=== PATIENT | female | born 1985 | race Caucasian/White ===

== ENCOUNTER → 2016-10-10 | Outpatient (REF) | payer OTHER ==
[~2016-10-10] MED LIST: ACET50TA PO; ANUS2.5C2 TOP; COLA50CA3 PO; IBUP600T26 PO; MOM30SS PO; PRENCAP9 PO; TUMS500C PO
== END | disposition home or self-care (01) ==
LOC: M LAB REF 16:24
PROVIDERS: ATTEND Advanced Practice Midwife
DX: Z34.82 Encounter for supervision of other normal pregnancy, second trimester (principal); Z36 Encounter for antenatal screening of mother; Z3A.00 Weeks of gestation of pregnancy not specified

== ENCOUNTER → 2016-10-17 | Outpatient (REF) | payer OTHER ==
[2016-10-17 18:08] LABS: BASO % 0.2 % (0.0-1.0); EOS # 0.1 K/mm3 (0.0-0.50); EOS % 1.2 % (0.0-3.0); LARGE UNSTAINED CELL # 0.1 K/mm3 (0.0-0.4); LARGE UNSTAINED CELL % 1.7 % (0.0-4.0); LYMPH # 1.8 K/mm3 (1.5-4.5); LYMPH % 20.5 % (24.0-44.0); MEAN CORPUSCULAR HEMOGLOBIN 29.8 pg (27.0-33.0); MEAN CORPUSCULAR HGB CONC 33.8 g/dl (32.0-36.5); MONO # 0.4 K/mm3 (0.0-0.8); MONO % 4.9 % (0.0-5.0); NEUTROPHILS # 6.1 K/mm3 (1.8-7.7); NEUTROPHILS % 71.6 % (36.0-66.0); PLATELET COUNT, AUTOMATED 194 k/mm3 (150-450); RED CELL DISTRIBUTION WIDTH 13.4 % (11.5-14.5); WHITE BLOOD COUNT 8.5 K/mm3 (4.0-10.0)
[2016-10-17 18:30] LABS: FERRITIN 7 NG/ML (8-252)
== END | disposition home or self-care (01) ==
LOC: M LAB REF 17:21
PROVIDERS: ATTEND Advanced Practice Midwife
DX: F50.89 Other specified eating disorder (principal)

== ENCOUNTER 2016-11-14 15:36 | Inpatient (IN) | payer MEDICAID, OTHER ==
[~2016-11-14] VITALS: Ht 157.5 cm; Wt 75.0 kg
[2016-11-14] VITALS (10 sets, daily range): BP systolic 112–139; BP diastolic 63–97
[2016-11-14] MEDS ORDERED: ACET25TA5 PO (16:01)
[2016-11-14] MEDS ORDERED: OXYTOCIN 30 UNITS IN 0.9% NaCl 500ML IV BAG (J2590) As Ordered ONE (16:43)
[2016-11-14] MEDS ORDERED: LACTATED RINGER'S 1000 ML IV STA (17:13)
[2016-11-14] MEDS ORDERED: OXYTOCIN DRIP 30 UNITS in APPROPRIATE DILUENT 1 EA IV SCH (17:15)
[2016-11-14 17:49] LABS: MEAN CORPUSCULAR HEMOGLOBIN 29.7 pg (27.0-33.0); MEAN CORPUSCULAR HGB CONC 33.1 g/dl (32.0-36.5); MEAN CORPUSCULAR VOLUME 89.7 fl (80.0-96.0); RED CELL DISTRIBUTION WIDTH 14.2 % (11.5-14.5); WHITE BLOOD COUNT 9.8 K/mm3 (4.0-10.0)
[2016-11-15] VITALS (45 sets, daily range): BP systolic 94–134; BP diastolic 52–89
[2016-11-15] MEDS: LR 1,000 ML IV SCH ×4 (00:32→14:23)
[2016-11-15] MEDS ORDERED: ACETAMINOPHEN 500 MG TAB PO STA (03:30)
[2016-11-15] MEDS ORDERED: PROMETHAZINE INJ 25 MG/ML VIAL (J2550) IV ONE (06:15)
[2016-11-15] MEDS ORDERED: BUTORPHANOL 2 MG/ML INJ (J0595) IV ONE (06:15)
[2016-11-15] MEDS ORDERED: BUTORPHANOL 2 MG/ML INJ (J0595) As Ordered ONE (06:19)
[2016-11-15] MEDS ORDERED: PROMETHAZINE INJ 25 MG/ML VIAL (J2550) As Ordered ONE (06:19)
--- NOTE | 2016-11-15 07:20 | HPE ---
DATE OF ADMISSION: 11/14/2016 Radha is a 31-year-old female, 5, para 2-0-2-2, with an expected date of confinement (EDC) of 11/15/2016, estimated gestational age (EGA) 39-6/7 weeks gestation who is being admitted for an induction. The patient does have a history of a prior section followed by successful vaginal after section (). After discussion extensively in the office, she did request an induction. The induction process was discussed with the patient as well as the limitation and complication with possible delivery and she still wants to proceed with the induction. record reviewed which was essentially unremarkable. LABS: Blood type is A+, rubella immune, hepatitis negative, HIV negative, GC and chlamydia negative. 1-hour sugar testing was within normal limits. Her GBS is negative. The patient has had a prior section in 2002 and had a successful vaginal delivery in 2012. PAST MEDICAL HISTORY: Significant for anxiety. PAST SURGICAL HISTORY: Dilation and curettage (D and C) times one, section. SOCIAL HISTORY: She denies any alcohol or drug use. She is a smoker. REVIEW OF SYSTEMS: Unremarkable. FAMILY HISTORY: Significant for arthritis, asthma and high blood pressure. MEDICATIONS: vitamins ALLERGIES: No known drug allergies. PHYSICAL EXAMINATION: Normal-appearing female in no acute distress. Abdomen soft, nontender, nondistended. Extremities: No clubbing, cyanosis or edema. Vaginal Exam: 2 cm dilated, 60-70% effaced, fetus at -3 station, vertex position. Tracing reviewed. Category one tracing. ASSESSMENT: 1. Intrauterine at 39-6/7 weeks gestation being admitted for an induction. 2. History of prior section with a successful . PLAN: Admit to labor and delivery. Routine labs sent. Induction process again discussed with the patient. Given her cervical dilatation, we did discuss Pitocin induction and Zaragoza bulb induction. The patient decided to proceed with Pitocin induction. Will continue to monitor. Pain management discussed. Anticipate delivery. MTDD
[2016-11-15] MEDS ORDERED: FENTANYL 2MCG/ML ROPIVACAINE 0.2% NACL 250 ML CADD As Ordered ONE (13:26)
[2016-11-15] MEDS ORDERED: LACTATED RINGER'S 1000 ML IV PRN (15:00)
[2016-11-15] MEDS ORDERED: ONDANSETRON 4MG/2ML VIAL (J2405) IV PRN ×2 (15:00→17:00)
[2016-11-15] MEDS ORDERED: ePHEDrine SULFATE 25 MG/5 ML(5MG/ML) SYRINGE IV PRN (15:00)
[2016-11-15] MEDS ORDERED: EPIDURAL COMMENT XX SCH (15:00)
[2016-11-15] MEDS ORDERED: FENTANYL/ROPIVACAINE/NACL CADD 250 ML EPIDURAL SCH (15:00)
[2016-11-15] MEDS ORDERED: EPIDURAL/PCA KEYS XX PRN (15:00)
[2016-11-15] MEDS ORDERED: diphenhydrAMINE INJ 50MG/ML VIAL (J1200) IV PRN (15:00)
[2016-11-15] MEDS ORDERED: REFRIGERATOR IV KEYS XX PRN (15:00)
[2016-11-15] MEDS ORDERED: NALOXONE INJ 0.4 MG/1 ML VIAL (J2310) IV PRN (15:00)
[2016-11-15] MEDS ORDERED: OXYTOCIN DRIP 30 UNITS in APPROPRIATE DILUENT 1 EA IV SCH (16:48)
[2016-11-15 16:54] LABS: CORD GAS ABE A -1.5; CORD GAS ABE V -3.2; CORD GAS HCO3 A 27.3 MEQ/L; CORD GAS HCO3 V 25.6 MEQ/L; CORD GAS O2 SAT A 25.1 %; CORD GAS O2 SAT V 47.6 %; CORD GAS PCO2 A 63.7 mmHg; CORD GAS PH A 7.25 UNITS; CORD GAS PH V 7.24 UNITS; CORD GAS PO2 A 16.1 mmHg; CORD GAS PO2 V 23.3 mmHg; CORD GAS SBC A 21.4 MEQ/L; CORD GAS SBC V 20.5 MEQ/L; CORD GAS TCO2 A 29.3 MEQ/L; CORD GAS TCO2 V 27.4 MEQ/L
[2016-11-15] MEDS ORDERED: DOCUSATE SODIUM 100 MG CAP PO PRN (17:00)
[2016-11-15] MEDS ORDERED: RHOGAM 300 MCG (1500 IU) INJ (J2790) IM SCH (17:00)
[2016-11-15] MEDS ORDERED: DIBUCAINE 1% OINTMENT 30GM TOP PRN (17:00)
[2016-11-15] MEDS ORDERED: MEASLES,MUMPS,RUBELLA VACCINE INJ (MMR-II) (90707) SC SCH (17:00)
[2016-11-15] MEDS ORDERED: ANUSOL HC CREAM 30GM TOP PRN (17:00)
[2016-11-15] MEDS ORDERED: METHYLERGONOVINE MALEATE 0.2 MG TAB PO PRN (17:00)
[2016-11-16 05:49] VITALS: BP 100/65
[2016-11-16] MEDS: ACETAMINOPHEN 500 MG TAB PO PRN ×2 (06:37→22:11)
[2016-11-16 06:49] LABS: MEAN CORPUSCULAR HEMOGLOBIN 30.2 pg (27.0-33.0); MEAN CORPUSCULAR HGB CONC 33.5 g/dl (32.0-36.5); MEAN CORPUSCULAR VOLUME 90.1 fl (80.0-96.0); RED CELL DISTRIBUTION WIDTH 14.3 % (11.5-14.5); WHITE BLOOD COUNT 12.3 K/mm3 (4.0-10.0)
--- NOTE | 2016-11-16 10:23 | DN ---
DATE: 11/15/2016 Radha is a female, 5, para 2-0-2-2, with an expected date of confinement (EDC) of 11/15/2016, estimated gestational age (EGA) 40 weeks gestation, who is admitted for an induction. She does have a history of prior section with a successful vaginal after section (). She underwent Pitocin followed by artificial rupture of membranes. She then progressed to fully dilated and had a 7-8 minute bradycardia with good recovery. The patient then pushed and delivered a live female in left occiput anterior position over an intact perineum. 9 and 9. weight 7 pounds 10 ounces. The placenta delivered spontaneously intact. There was a questionable cord abruption at the insertion to the placenta. The perineum, vagina and cervix inspected. No laceration noted. Estimated blood loss 300 mL. Both mother and baby in stable condition.
[2016-11-16] MEDS: PRENATAL VITAMIN TAB PO SCH (10:43)
[2016-11-16] MEDS: IBUPROFEN 800 MG TAB PO PRN (13:30)
[2016-11-16 18:06] VITALS: BP 123/78
[2016-11-17 05:57] VITALS: BP 118/71
[2016-11-17] MEDS: PRENATAL VITAMIN TAB PO SCH (08:37)
[2016-11-17] MEDS: IBUPROFEN 800 MG TAB PO PRN (08:37)
[2016-11-17] MEDS ORDERED: ACET50TA PO (09:05)
[2016-11-17] MEDS ORDERED: IBUP-1114 PO (09:05)
== END 2016-11-17 10:20 | disposition home or self-care (01) | DRG 560 ==
LOC: M LDI 15:36 → M OBS 11-15 18:22
PROVIDERS: ADMIT Obstetrics & Gynecology; ATTEND Obstetrics & Gynecology
PROC: 3E033VJ Introduction of Other Hormone into Peripheral Vein, Percutaneous Approach (ICD-10-PCS; 2016-11-14)
PROC: 10E0XZZ Delivery of Products of Conception, External Approach (ICD-10-PCS; principal; 2016-11-15)
PROC: 10907ZC Drainage of Amniotic Fluid, Therapeutic from Products of Conception, Via Natural or Artificial Opening (ICD-10-PCS; 2016-11-15)
DX: O34.211 Maternal care for low transverse scar from previous cesarean delivery (principal); Z3A.39 39 weeks gestation of pregnancy; O99.334 Smoking (tobacco) complicating childbirth; F17.210 Nicotine dependence, cigarettes, uncomplicated; Z37.0 Single live birth

== ENCOUNTER → 2017-02-02 | Day surgery (SDC) | payer OTHER ==
[~2017-02-02] VITALS: Ht 157.5 cm; Wt 68.0 kg
[~2017-02-02] MED LIST changes: +ACET25TA5 PO; +ACETAMINOPHEN 650 MG SUPP As Ordered ONE; +ACETAMINOPHEN 650 MG SUPP PR ONE; +BENA25CA4 PO; +BUPIVACAINE/EPIN 0.25% 30 ML VIAL As Ordered ONE; +GLYCOPYRROLATE INJ 0.2 MG/ML 2 ML VIAL As Ordered ONE; +HYDROmorphone HCL 2 MG/ML 1ML VIAL (J1170) As Ordered ONE; +IBUP-1114 PO; +IBUP80TA PO; +IBUPROFEN 800 MG TAB PO SCH; +KETOROLAC 60 MG/2 ML VIAL (J1885) As Ordered ONE; +LIDOCAINE 2% INJ 100 MG/5 ML SDV (FOR ANES.) As Ordered ONE; +LR 1,000 ML IV SCH; +MIDAZOLAM INJ 2 MG/2 ML VIAL (J2250) As Ordered ONE; +NEOSTIGMINE 1MG/ML 5 ML SYRINGE (J2710) As Ordered ONE; +ONDANSETRON 4MG/2ML VIAL (J2405) As Ordered ONE; +ONDANSETRON 4MG/2ML VIAL (J2405) IV PRN; +PERCOCET 5MG/325MG TAB As Ordered ONE; +PERCOCET 5MG/325MG TAB PO PRN; +PROPOFOL 200 MG/20 ML VIAL As Ordered ONE; +ROCURONIUM BROMIDE 50 MG/5 ML VIAL As Ordered ONE; +dexameTHASONE 4 MG/ML 1ML VIAL (J1100) As Ordered ONE; +fentaNYL 100 MCG/2 ML INJECTION (J3010) As Ordered ONE
[2017-02-02 09:40] LABS: MEAN CORPUSCULAR HEMOGLOBIN 30.6 pg (27.0-33.0); MEAN CORPUSCULAR HGB CONC 33.4 g/dl (32.0-36.5); MEAN CORPUSCULAR VOLUME 91.6 fl (80.0-96.0); RED CELL DISTRIBUTION WIDTH 13.3 % (11.5-14.5); WHITE BLOOD COUNT 6.5 K/mm3 (4.0-10.0)
[2017-02-02 09:55] LABS: CONTROL LINE HCG INT CTR LINE PRESENT
[2017-02-02] MEDS: PERCOCET 5MG/325MG TAB PO PRN ×2 (11:07→11:37)
[2017-02-02] MEDS: fentaNYL 100 MCG/2 ML INJECTION (J3010) IV PRN ×4 (11:07→11:22)
--- NOTE | 2017-02-02 11:14 | RO ---
DATE OF PROCEDURE: 02/02/2017 PREOPERATIVE DIAGNOSIS: Multiparity, desires permanent tubal sterilization. POSTOPERATIVE DIAGNOSIS: Multiparity, desires permanent tubal sterilization. PROCEDURE: Laparoscopic bilateral tubal ligation using a Filshie clip SURGEON: Dr. Jens Anderson PATENT LAW SPECIALIST: ANESTHESIA: General. COMPLICATIONS: None. ESTIMATED BLOOD LOSS: Less than 10 mL. FINDINGS: Normal-appearing tubes, lower uterine segment was found to be adherent to the bladder Eliz is a 31-year-old female who desires A permanent tubal sterilization. After counseling in the office, a decision was made for laparoscopic bilateral tubal ligation. PROCEDURE: After obtaining informed consent, the patient was taken to the operating room where general anesthetic was found to be adequate. She was then draped and prepped in the usual sterile fashion in a dorsal lithotomy position. At this point, a sponge stick was placed in the vagina for uterine manipulation. We then turned our attention to the abdomen where a 5 mm infraumbilical incision was made. Using the Veress needle, the abdomen was insufflated with CO2 gas to approximately 3.5 liters. A 5 mm [place] trocar as well as the laparoscope were inserted under direct visualization. Then, an 8 mm right lateral port was placed. The patient was placed in Trendelenburg. Fallopian tubes identified. Pelvis inspected with the above-noted findings. At this point, a Filshie clip was then applied 2-3 cm away from the cornual area on each tube. The pelvis copiously irrigated with normal saline and suctioned out. Good hemostasis noted. All instruments removed. The laparoscopic ports were closed using Dermabond on the skin, 0.25% Marcaine was placed for postoperative pain. The patient tolerated the procedure well. She was then transferred to the recovery room in stable condition.
[2017-02-02 12:15] VITALS: BP 116/75
== END ==
LOC: M SDC 08:55
PROVIDERS: ATTEND Obstetrics & Gynecology
DX: Z30.2 Encounter for sterilization (principal); F41.9 Anxiety disorder, unspecified; F17.210 Nicotine dependence, cigarettes, uncomplicated
CPT/HCPCS: 36415; 58671; 84703; 85027; 86850; 86900; 86901; A4649; J1100; J1170; J1885; J2250; J2405; J2710; J3010

== ENCOUNTER → 2017-09-19 | Outpatient (REF) | payer OTHER ==
[~2017-09-19] MED LIST changes: +ACET25TA12 PO; -ACET25TA5 PO; -ACETAMINOPHEN 650 MG SUPP As Ordered ONE; -ACETAMINOPHEN 650 MG SUPP PR ONE; -BUPIVACAINE/EPIN 0.25% 30 ML VIAL As Ordered ONE; -GLYCOPYRROLATE INJ 0.2 MG/ML 2 ML VIAL As Ordered ONE; -HYDROmorphone HCL 2 MG/ML 1ML VIAL (J1170) As Ordered ONE; -IBUPROFEN 800 MG TAB PO SCH; -KETOROLAC 60 MG/2 ML VIAL (J1885) As Ordered ONE; -LIDOCAINE 2% INJ 100 MG/5 ML SDV (FOR ANES.) As Ordered ONE; -LR 1,000 ML IV SCH; -MIDAZOLAM INJ 2 MG/2 ML VIAL (J2250) As Ordered ONE; -NEOSTIGMINE 1MG/ML 5 ML SYRINGE (J2710) As Ordered ONE; -ONDANSETRON 4MG/2ML VIAL (J2405) As Ordered ONE; -ONDANSETRON 4MG/2ML VIAL (J2405) IV PRN; -PERCOCET 5MG/325MG TAB As Ordered ONE; -PERCOCET 5MG/325MG TAB PO PRN; -PROPOFOL 200 MG/20 ML VIAL As Ordered ONE; -ROCURONIUM BROMIDE 50 MG/5 ML VIAL As Ordered ONE; -dexameTHASONE 4 MG/ML 1ML VIAL (J1100) As Ordered ONE; -fentaNYL 100 MCG/2 ML INJECTION (J3010) As Ordered ONE
[2017-09-19 15:10] LABS: BASO # 0.1 10^3/uL (0.0-0.2); BASO % 0.8 % (0.0-1.0); EOS # 0.1 10^3/uL (0.0-0.50); EOS % 1.2 % (0.0-3.0); IMMATURE GRANULOCYTE % 0.2 % (0-0); LYMPH # 2.2 10^3/uL (1.5-4.5); LYMPH % 36.2 % (24.0-44.0); MEAN CORPUSCULAR HEMOGLOBIN 29.4 pg (27.0-33.0); MEAN CORPUSCULAR HGB CONC 33.3 g/dl (32.0-36.5); MEAN CORPUSCULAR VOLUME 88.2 fl (80.0-96.0); MONO # 0.5 10^3/uL (0.0-0.8); MONO % 8.1 % (0.0-5.0); NEUTROPHILS # 3.2 10^3/uL (1.8-7.7); NEUTROPHILS % 53.5 % (36.0-66.0); PLATELET COUNT, AUTOMATED 249 10^3/uL (150-450); WHITE BLOOD COUNT 5.9 10^3/uL (4.0-10.0)
[2017-09-19 15:37] LABS: ALBUMIN 3.8 GM/DL (3.2-5.2); ALBUMIN/GLOBULIN RATIO 1.15 (1.00-1.93); ALKALINE PHOSPHATASE 90 U/L (45-117); ALT/SGPT 20 U/L (12-78); ANION GAP 7 MEQ/L (8-16); AST/SGOT 11 U/L (7-37); BILIRUBIN,TOTAL 0.5 MG/DL (0.2-1.0); BLOOD UREA NITROGEN 9 MG/DL (7-18); CALCIUM LEVEL 8.9 MG/DL (8.5-10.1); CARBON DIOXIDE LEVEL 27 MEQ/L (21-32); CHLORIDE LEVEL 107 MEQ/L (98-107); CHOLESTEROL LEVEL 185 MG/DL (<200); GLOMERULAR FILTRATION RATE > 60.0 (>60); GLUCOSE, FASTING 78 MG/DL (70-105); POTASSIUM SERUM 4.2 MEQ/L (3.5-5.1); SODIUM LEVEL 141 MEQ/L (136-145); TOTAL PROTEIN 7.1 GM/DL (6.4-8.2); TRIGLYCERIDES LEVEL 157 MG/DL (<150)
== END ==
LOC: M LAB REF 13:45
PROVIDERS: ATTEND Family Medicine Addiction Medicine
DX: Z00.01 Encounter for general adult medical examination with abnormal findings (principal); F33.1 Major depressive disorder, recurrent, moderate; F41.1 Generalized anxiety disorder

== ENCOUNTER → 2020-02-26 | Outpatient (CLI) | payer OTHER ==
[~2020-02-26] MED LIST changes: -ACET50TA PO; +MAPA500T17 PO; +MAPA500T2 PO
[2020-02-26 15:23] LABS: BASO # 0.1 10^3/uL (0.0-0.2); BASO % 0.9 % (0.0-1.0); EOS # 0.2 10^3/uL (0.0-0.5); EOS % 3.1 % (0.0-3.0); HEMATOCRIT 45.4 % (36.0-47.0); LYMPH # 2.2 10^3/uL (1.5-5.0); LYMPH % 29.9 % (24.0-44.0); MEAN CORPUSCULAR HEMOGLOBIN 29.9 pg (27.0-33.0); MEAN CORPUSCULAR VOLUME 90.4 fl (80.0-96.0); MONO # 0.5 10^3/uL (0.0-0.8); MONO % 7.3 % (0.0-5.0); NEUTROPHILS # 4.3 10^3/uL (1.5-8.5); NEUTROPHILS % 58.5 % (36.0-66.0); PLATELET COUNT, AUTOMATED 200 10^3/uL (150-450); RED BLOOD COUNT 5.02 10^6/uL (4.00-5.40); WHITE BLOOD COUNT 7.4 10^3/uL (4.0-10.0)
[2020-02-26 15:37] LABS: BLOOD UREA NITROGEN 11 MG/DL (7-18); CARBON DIOXIDE LEVEL 26 MEQ/L (21-32); CHLORIDE LEVEL 106 MEQ/L (98-107); CREATININE FOR GFR 0.58 MG/DL (0.55-1.30); GLOMERULAR FILTRATION RATE > 60.0 (>60); GLUCOSE, FASTING 90 MG/DL (70-100); SODIUM LEVEL 138 MEQ/L (136-145)
--- NOTE | 2020-02-26 15:45 | REP ---
CT ABDOMEN AND PELVIS WITHOUT IV OR ORAL CONTRAST: HISTORY: Renal stone protocol. Comparison: CT study January 23, 2014. CT study from July 08, [address] FINDINGS: Preliminary digital bottom precipitator operator radiograph is unremarkable. Tubal ligation clamps are noted in the central abdomen. Bowel gas pattern is normal. The lung bases are clear on axial CT images. The liver and the spleen are normal in size homogeneous in texture. No abnormalities noted in the gallbladder or the pancreas. Normal adrenal glands are seen. There is no evidence of hydronephrosis or intrarenal calculus in either kidney. No ureteral or bladder calculus is observed. No uterine abnormalities observed. There is a small cyst in the right ovary measuring 3.2 cm in greatest diameter. No free fluid or free air is noted. No retroperitoneal mass or adenopathy is seen. No abdominal wall defect is seen. There are scattered diverticula in the proximal transverse colon. There is scattered diverticulosis in the descending colon as well. No CT evidence of diverticulitis is seen. The appendix is not confidently identified on today's CT study but there is no CT evidence of appendicitis. IMPRESSION: No urinary tract calculus or hydronephrosis seen. Status post bilateral tubal ligation. Scattered left and right colonic diverticulosis without CT evidence of diverticulitis. 3.2 cm cystic area right ovary. Otherwise negative. Electronically Signed by Renato Villaseñor MD 02/26/2020 04:14 P
[2020-02-27 11:10] LABS: HIV 1&2 SCREEN CENTAUR NEGATIVE (NEGATIVE)
== END ==
LOC: M RAD 14:14
PROVIDERS: ATTEND Nurse Practitioner Family
DX: K57.30 Diverticulosis of large intestine without perforation or abscess without bleeding (principal); Z11.3 Encounter for screening for infections with a predominantly sexual mode of transmission; R10.2 Pelvic and perineal pain

== ENCOUNTER → 2020-02-26 | Outpatient (REF) | payer OTHER ==
[2020-02-26 20:23] LABS: APPEARANCE, URINE HAZY (CLEAR); BACTERIA, URINE AUTO NEGATIVE (NEGATIVE); BILIRUBIN, URINE AUTO NEGATIVE (NEGATIVE); BLOOD, URINE BLOOD NEGATIVE (NEGATIVE); COLOR, URINE YELLOW (YELLOW); GLUCOSE, URINE (UA) AUTO NEGATIVE (NEGATIVE); KETONE, URINE AUTO NEGATIVE (NEGATIVE); LEUKOCYTE ESTERASE, URINE AUTO NEGATIVE (NEGATIVE); MUCUS, URINE SMALL (NEGATIVE); NITRITE, URINE AUTO NEGATIVE (NEGATIVE); PROTEIN, URINE AUTO NEGATIVE (NEGATIVE); RBC, URINE AUTO 2 /HPF (0-3); SPECIFIC GRAVITY URINE AUTO 1.018 (1.002-1.035); SQUAMOUS EPITHELIAL CELL UR AU 5 /HPF (0-6); UROBILINOGEN, URINE AUTO 0.2 mg/dL (0.0-2.0); WBC, URINE AUTO 4 /HPF (0-3)
[2020-02-27 03:44] LABS: CHLAMYDIA DNA AMPLIFICATION NEGATIVE (NEGATIVE); GC DNA AMPLIFICATION NEGATIVE (NEGATIVE)
== END ==
LOC: M SFHCPLAZ 15:38
PROVIDERS: ATTEND Nurse Practitioner Family
DX: R35.0 Frequency of micturition (principal); Z11.3 Encounter for screening for infections with a predominantly sexual mode of transmission

== ENCOUNTER → 2020-02-26 | Outpatient (CLI) | payer OTHER | LOC: M RAD 13:39 | PROVIDERS: ATTEND Nurse Practitioner Family | DX: R10.9 Unspecified abdominal pain (principal) ==

== ENCOUNTER → 2020-04-07 | Outpatient (REF) | payer OTHER | LOC: M LAB REF 10:32 | PROVIDERS: ATTEND Specialist | DX: K13.79 Other lesions of oral mucosa (principal) ==

== ENCOUNTER 2022-05-28 03:59 | Emergency (ER) | payer OTHER ==
[~2022-05-28] VITALS: Ht 157.5 cm; Wt 67.1 kg
[2022-05-28] MEDS ORDERED: HYDR-3363 PO (04:08)
[2022-05-28 06:27] LABS: BASO % 0.3 % (0.0-1.0); EOS # 0.4 10^3/uL (0.0-0.5); EOS % 4.8 % (0.0-3.0); HEMATOCRIT 43.8 % (36.0-47.0); HEMOGLOBIN 14.6 g/dl (12.0-15.5); LYMPH # 1.4 10^3/uL (1.5-5.0); MEAN CORPUSCULAR HEMOGLOBIN 29.6 pg (27.0-33.0); MEAN CORPUSCULAR HGB CONC 33.3 g/dl (32.0-36.5); MEAN CORPUSCULAR VOLUME 88.7 fl (80.0-96.0); MONO # 0.7 10^3/uL (0.0-0.8); MONO % 8.2 % (2.0-8.0); NEUTROPHILS # 5.5 10^3/uL (1.5-8.5); NEUTROPHILS % 69.3 % (36.0-66.0); PLATELET COUNT, AUTOMATED 208 10^3/uL (150-450); RED BLOOD COUNT 4.94 10^6/uL (4.00-5.40); WHITE BLOOD COUNT 7.9 10^3/uL (4.0-10.0)
[2022-05-28 06:45] LABS: HCG, SERUM QUALITATIVE NEGATIVE (NEGATIVE)
[2022-05-28 06:54] LABS: ALBUMIN 3.4 GM/DL (3.2-5.2); ALT/SGPT 20 U/L (12-78); BILIRUBIN,DIRECT 0.2 MG/DL (0.0-0.2); BILIRUBIN,TOTAL 0.2 MG/DL (0.2-1.0); BLOOD UREA NITROGEN 9 MG/DL (7-18); CALCIUM LEVEL 8.7 MG/DL (8.5-10.1); CARBON DIOXIDE LEVEL 25 MEQ/L (21-32); CHLORIDE LEVEL 107 MEQ/L (98-107); GLOMERULAR FILTRATION RATE > 60.0 (>60); GLUCOSE, FASTING 91 MG/DL (70-100); LIPASE 90 U/L (73-393); POTASSIUM SERUM 3.9 MEQ/L (3.5-5.1); SODIUM LEVEL 138 MEQ/L (136-145); TOTAL PROTEIN 6.8 GM/DL (6.4-8.2)
[2022-05-28] MEDS ORDERED: GI COCKTAIL 50ML BTL(HYOSCYAMINE/MAALOX/LIDOCAINE VISCOUS)(1:3:1) PO ONE (07:45)
[2022-05-28] MEDS ORDERED: SUCR1SS PO (08:35)
[2022-05-28] MEDS ORDERED: PROT1TAB2 PO (08:35)
[2022-05-28 08:41] VITALS: BP 131/81
== END 2022-05-28 08:42 | disposition home or self-care (01) ==
LOC: M ED 03:59
DX: K21.9 Gastro-esophageal reflux disease without esophagitis (principal); R51.9 Headache, unspecified; Z87.442 Personal history of urinary calculi; F17.200 Nicotine dependence, unspecified, uncomplicated; Z79.899 Other long term (current) drug therapy

== ENCOUNTER → 2023-01-16 | Outpatient (REF) | payer OTHER ==
[~2023-01-16] MED LIST changes: +HYDR-3363 PO; +PROT1TAB2 PO; +SUCR1SS PO
== END ==
LOC: M SFHCPLAZ 10:16
PROVIDERS: ATTEND Physician Assistant
DX: F41.1 Generalized anxiety disorder (principal); Z53.9 Procedure and treatment not carried out, unspecified reason

== ENCOUNTER → 2023-01-16 | Outpatient (CLI) | payer OTHER ==
[2023-01-16 14:31] LABS: BASO # 0.1 10^3/uL (0.0-0.2); BASO % 0.8 % (0.0-1.0); EOS # 0.3 10^3/uL (0.0-0.5); EOS % 2.8 % (0.0-3.0); HEMATOCRIT 45.2 % (36.0-47.0); HEMOGLOBIN 14.7 g/dl (12.0-15.5); LYMPH # 2.6 10^3/uL (1.5-5.0); LYMPH % 21.9 % (24.0-44.0); MEAN CORPUSCULAR HEMOGLOBIN 29.6 pg (27.0-33.0); MEAN CORPUSCULAR HGB CONC 32.5 g/dl (32.0-36.5); MEAN CORPUSCULAR VOLUME 90.9 fl (80.0-96.0); MONO # 0.8 10^3/uL (0.0-0.8); MONO % 6.7 % (2.0-8.0); NEUTROPHILS % 67.5 % (36.0-66.0); PLATELET COUNT, AUTOMATED 305 10^3/uL (150-450); RED BLOOD COUNT 4.97 10^6/uL (4.00-5.40); WHITE BLOOD COUNT 11.9 10^3/uL (4.0-10.0)
[2023-01-16 14:38] LABS: ALBUMIN 4.1 G/DL (3.2-5.2); ALKALINE PHOSPHATASE 94 U/L (46-116); ALT/SGPT 15 U/L (7.0-40); AST/SGOT 18 U/L (<34); BILIRUBIN,TOTAL 0.7 MG/DL (0.3-1.2); BLOOD UREA NITROGEN 5 MG/DL (9-23); CALCIUM LEVEL 9.2 MG/DL (8.5-10.1); CARBON DIOXIDE LEVEL 30 MMOL/L (20-31); CHLORIDE LEVEL 105 MMOL/L (98-107); CHOLESTEROL LEVEL 177 MG/DL (<200); CHOLESTEROL RISK RATIO 2.55 (<5); CREATININE FOR GFR 0.68 MG/DL (0.55-1.30); FREE T4 1.18 NG/DL (0.89-1.76); GLOMERULAR FILTRATION RATE > 60.0 (>60); GLUCOSE, FASTING 82 MG/DL (60-100); HDL CHOLESTEROL 69.4 MG/DL (>40); LDL CHOLESTEROL 87.8 MG/DL (<100); NON-HDL-C 107.6 MG/DL; POTASSIUM SERUM 3.5 MMOL/L (3.5-5.1); SODIUM LEVEL 139 MMOL/L (136-145); THYROID STIMULATING HORMONE 1.277 uIU/ML (0.55-4.78); TRIGLYCERIDES LEVEL 99 MG/DL (<150)
== END ==
LOC: M PLALAB 10:16
PROVIDERS: ATTEND Physician Assistant
DX: F41.1 Generalized anxiety disorder (principal)

== ENCOUNTER 2023-03-14 08:30 | Day surgery (SDC) | payer OTHER ==
[~2023-03-14] VITALS: Ht 154.9 cm; Wt 55.3 kg
[~2023-03-14 08:30] MED LIST changes: +ALPR0.25 PO; +AMPH1TAB2 PO; +NS 1,000 ML IV ONE; +SERT50TA29 PO
[2023-03-14] MEDS ORDERED: fentaNYL 100 MCG/2 ML INJECTION As Ordered ONE (09:38)
[2023-03-14] MEDS ORDERED: propofoL 200 MG/20 ML VIAL As Ordered ONE (09:38)
[2023-03-14] MEDS ORDERED: LIDOCAINE 2% 100MG/5ML SDV (FOR ANES.) As Ordered ONE (09:38)
[2023-03-14] MEDS ORDERED: ONDANSETRON 4MG 2ML VIAL As Ordered ONE (09:51)
[2023-03-14 10:10] VITALS: TEMP 97.8
[2023-03-14 10:34] VITALS: BP 122/77; O2SAT 99
== END 2023-03-14 10:43 | disposition home or self-care (01) ==
LOC: M OPP 08:30
PROVIDERS: ATTEND Surgery
DX: R63.4 Abnormal weight loss (principal); R14.0 Abdominal distension (gaseous); K59.00 Constipation, unspecified; K57.30 Diverticulosis of large intestine without perforation or abscess without bleeding; K29.70 Gastritis, unspecified, without bleeding; K21.9 Gastro-esophageal reflux disease without esophagitis; F41.9 Anxiety disorder, unspecified; F17.210 Nicotine dependence, cigarettes, uncomplicated; Z79.899 Other long term (current) drug therapy
CPT/HCPCS: 43239; 45378; 88305; J2405; J3010

== ENCOUNTER → 2023-03-21 | Outpatient (CLI) | payer OTHER ==
[~2023-03-21] MED LIST changes: -NS 1,000 ML IV ONE
[2023-03-21 10:57] LABS: RHEUMATOID FACTOR QUANT < 3.5 IU/ML (<14)
[2023-03-21 10:58] LABS: VITAMIN B12 LEVEL 275 PG/ML (211-911)
[2023-03-21 10:59] LABS: TOTAL 25(OH) VITAMIN D 20.7 NG/ML (20.0-100.0)
[2023-03-21 11:00] LABS: FOLATE 9.2 NG/ML (>5.4)
[2023-03-21 11:14] LABS: HEMOGLOBIN A1c 4.8 % (4.0-6.0)
[2023-03-22 11:09] LABS: ANTINUCLEAR ANTIBODIES DIRECT Negative (Negative)
[2023-03-25 13:09] LABS: VITAMIN E(ALPHA TOCOPHEROL) 10.4 mg/L (5.9-19.4); VITAMIN E(GAMMA TOCOPHEROL) 2.2 mg/L (0.7-4.9)
[2023-03-26 05:06] LABS: VITAMIN B1 LEVEL WHOLE BLOOD 112.4 nmol/L (66.5-200.0); VITAMIN B6,PYRIDOXAL PHOSPHATE 3.5 ug/L (3.4-65.2)
== END ==
LOC: M LAB 09:31
PROVIDERS: ATTEND Psychiatry & Neurology Neurology
DX: R51.9 Headache, unspecified (principal); E11.42 Type 2 diabetes mellitus with diabetic polyneuropathy

== ENCOUNTER → 2023-04-13 | Outpatient (CLI) | payer OTHER | LOC: M RAD 08:53 | PROVIDERS: ATTEND Physician Assistant | DX: R10.13 Epigastric pain (principal) ==

== ENCOUNTER → 2023-10-27 | Outpatient (REF) | payer OTHER | LOC: M LAB REF 17:37 | PROVIDERS: ATTEND Physician Assistant Medical | DX: B34.9 Viral infection, unspecified (principal) ==

== ENCOUNTER → 2023-10-31 | Outpatient (CLI) | payer OTHER ==
[2023-10-31 13:40] LABS: BASO % 0.4 % (0.0-1.0); EOS # 0.1 10^3/uL (0.0-0.5); EOS % 1.4 % (0.0-3.0); HEMATOCRIT 45.7 % (36.0-47.0); HEMOGLOBIN 15.4 g/dl (12.0-15.5); MEAN CORPUSCULAR HEMOGLOBIN 29.9 pg (27.0-33.0); MEAN CORPUSCULAR HGB CONC 33.7 g/dl (32.0-36.5); MEAN CORPUSCULAR VOLUME 88.7 fl (80.0-96.0); MONO # 0.5 10^3/uL (0.0-0.8); MONO % 4.8 % (2.0-8.0); NEUTROPHILS % 62.2 % (36.0-66.0); PLATELET COUNT, AUTOMATED 246 10^3/uL (150-450); RED BLOOD COUNT 5.15 10^6/uL (4.00-5.40); WHITE BLOOD COUNT 9.6 10^3/uL (4.0-10.0)
[2023-10-31 13:59] LABS: VITAMIN B12 LEVEL 1254 PG/ML (211-911)
[2023-10-31 14:00] LABS: FREE T4 1.12 NG/DL (0.89-1.76)
[2023-10-31 14:01] LABS: ALBUMIN 3.8 G/DL (3.2-5.2); ALKALINE PHOSPHATASE 100 U/L (46-116); ALT/SGPT 32 U/L (7.0-40); AST/SGOT 20 U/L (<34); BILIRUBIN,TOTAL 0.3 MG/DL (0.3-1.2); BLOOD UREA NITROGEN 10 MG/DL (9-23); CALCIUM LEVEL 9.3 MG/DL (8.5-10.1); CARBON DIOXIDE LEVEL 27 MMOL/L (20-31); CHLORIDE LEVEL 104 MMOL/L (98-107); CHOLESTEROL LEVEL 243 MG/DL (<200); CHOLESTEROL RISK RATIO 4.23 (<5); CREATININE FOR GFR 0.63 MG/DL (0.55-1.30); FERRITIN 24.3 NG/ML (7.3-270.7); GLOMERULAR FILTRATION RATE > 60.0 (>60); GLUCOSE, FASTING 93 MG/DL (60-100); HDL CHOLESTEROL 57.4 MG/DL (>40); IRON (FE) 96 UG/DL (50-170); LDL CHOLESTEROL 154.6 MG/DL (<100); NON-HDL-C 185.6 MG/DL; PERCENT SATURATION 27.9 % (13.2-45.0); POTASSIUM SERUM 4.1 MMOL/L (3.5-5.1); SODIUM LEVEL 139 MMOL/L (136-145); THYROID STIMULATING HORMONE 1.738 uIU/ML (0.55-4.78); TOTAL IRON BINDING CAPACITY 344 UG/DL (250-425); TOTAL PROTEIN 6.9 G/DL (5.7-8.2); TRIGLYCERIDES LEVEL 155 MG/DL (<150)
[2023-10-31 14:02] LABS: TOTAL 25(OH) VITAMIN D 27.8 NG/ML (20.0-100.0)
== END ==
LOC: M PLALAB 11:33
PROVIDERS: ATTEND Physician Assistant
DX: F41.1 Generalized anxiety disorder (principal); M25.571 Pain in right ankle and joints of right foot; M79.671 Pain in right foot

== ENCOUNTER → 2024-01-02 | Outpatient (CLI) | payer OTHER | LOC: M PLALAB 11:14 | PROVIDERS: ATTEND Physician Assistant | DX: Z80.0 Family history of malignant neoplasm of digestive organs (principal); Z80.3 Family history of malignant neoplasm of breast ==

== ENCOUNTER → 2024-06-05 | Outpatient (REF) | payer OTHER | LOC: M LAB REF 08:36 | PROVIDERS: ATTEND Surgery | DX: L90.5 Scar conditions and fibrosis of skin (principal) ==

== ENCOUNTER → 2024-11-05 | Outpatient (CLI) | payer OTHER ==
[2024-11-05 17:06] LABS: HEMATOCRIT 41.7 % (36.0-47.0); MEAN CORPUSCULAR HEMOGLOBIN 29.5 pg (27.0-33.0); MEAN CORPUSCULAR HGB CONC 33.6 g/dl (32.0-36.5); PLATELET COUNT, AUTOMATED 333 10^3/uL (150-450); RED BLOOD COUNT 4.74 10^6/uL (4.00-5.40); WHITE BLOOD COUNT 11.3 10^3/uL (4.0-10.0)
[2024-11-05 17:08] LABS: FREE T4 1.23 NG/DL (0.89-1.76); THYROID STIMULATING HORMONE 1.249 uIU/ML (0.55-4.78)
[2024-11-05 17:09] LABS: ALBUMIN 3.5 G/DL (3.2-5.2); ALKALINE PHOSPHATASE 117 U/L (35-104); ALT/SGPT 22 U/L (7.0-40); AST/SGOT 18 U/L (<34); BILIRUBIN,TOTAL 0.3 MG/DL (0.3-1.2); BLOOD UREA NITROGEN 7 MG/DL (9-23); C REACTIVE PROTEIN QUANTITATIV < 0.50 MG/DL (<1.0); CALCIUM LEVEL 9.4 MG/DL (8.5-10.1); CARBON DIOXIDE LEVEL 28 MMOL/L (20-31); CHLORIDE LEVEL 106 MMOL/L (98-107); CHOLESTEROL LEVEL 266 MG/DL (<200); CHOLESTEROL RISK RATIO 4.97 (<5); GLOMERULAR FILTRATION RATE > 60.0 (>60); GLUCOSE, FASTING 89 MG/DL (60-100); HDL CHOLESTEROL 53.5 MG/DL (>40); IRON (FE) 54 UG/DL (50-170); LDL CHOLESTEROL 186.7 MG/DL (<100); NON-HDL-C 212.5 MG/DL; PERCENT SATURATION 16.7 % (13.2-45.0); POTASSIUM SERUM 4.1 MMOL/L (3.5-5.1); SODIUM LEVEL 140 MMOL/L (136-145); TOTAL IRON BINDING CAPACITY 323 UG/DL (250-425); TOTAL PROTEIN 6.9 G/DL (5.7-8.2); TRIGLYCERIDES LEVEL 129 MG/DL (<150)
[2024-11-05 17:11] LABS: VITAMIN B12 LEVEL 523 PG/ML (211-911)
[2024-11-05 17:13] LABS: FOLATE 9.3 NG/ML (>5.4)
[2024-11-05 17:15] LABS: HEMOGLOBIN A1c 4.9 % (4.0-6.0)
[2024-11-05 17:17] LABS: ERYTHROCYTE SEDIMENTATION RATE 29 mm/hr (0-20)
== END ==
LOC: M PLALAB 12:52
PROVIDERS: ATTEND Nurse Practitioner Family
DX: R00.2 Palpitations (principal); R43.2 Parageusia; Z13.220 Encounter for screening for lipoid disorders; Z13.1 Encounter for screening for diabetes mellitus

== ENCOUNTER → 2024-11-05 | Outpatient (REF) | payer OTHER | LOC: M SFHCPLAZ 15:05 | PROVIDERS: ATTEND Nurse Practitioner Family | DX: R43.2 Parageusia (principal) ==

== ENCOUNTER → 2025-01-01 | Outpatient (REF) | payer OTHER ==
[2025-01-04 12:07] LABS: HPV APTIMA Not Detected (Not Detected)
== END ==
LOC: M SFHCPLAZ 15:06
PROVIDERS: ATTEND Nurse Practitioner Family
DX: Z12.4 Encounter for screening for malignant neoplasm of cervix (principal)